=== PATIENT | male | born 1945 | race Caucasian/White ===

== ENCOUNTER 2016-10-20 15:27 | Emergency (ER) | payer MEDICARE, MEDICAID, OTHER ==
[2016-10-20 15:52] VITALS: BP 150/77
--- NOTE | 2016-10-20 16:54 | EDM.PDOC ---
ED HPI GENERAL MEDICAL PROBLEM - General Chief Complaint: General Stated Complaint: HERNIA Time Seen by Provider: 10/20/16 16:48 Source of Information: Reports: Patient History Limitations: Reports: No limitations - History of Present Illness INITIAL COMMENTS - FREE TEXT/NARRATIVE: PT ARRIVED WITH A HISTORY OF AN UMBILICAL HERNIA >hE RUBBED AGAINST SOMETHING LAST NITE AND HE ENDED UP WITH ABOUT 1 AND 1/2 GALLONS OF FLUID COMING FROM THE ABDOMAN. wHEN HE STANDS UPHE HAS FREE FLOW OF FLUID COMING OUT OF THE ABDOMAN. , Onset: today Duration: Hour(s): Location: Reports: abdomen - Related Data Allergies Allergy/AdvReac Type Severity Reaction Status Date / Time No Known Allergies Allergy Verified 05/12/16 10:12 Home Meds: Home Meds Furosemide [Furosemide] 10/20/16 [History] Metoprolol Tartrate [Metoprolol Tartrate] 10/20/16 [History] Past Medical History Musculoskeletal History: Reports: Fracture - Past Surgical History Other GI Surgeries/Procedures: liver cirrosis Social & Family History - Tobacco Use Smoking Status *Q: Light Tobacco Smoker Years of Tobacco use: 50 Packs/Tins Daily: 0.5 - Caffeine Use Caffeine Use: Reports: Coffee, Soda - Recreational Drug Use Recreational Drug Use: No ED ROS GENERAL - Review of Systems Review Of Systems: See Below Constitutional: Reports: no symptoms HEENT: Reports: No symptoms Respiratory: Reports: No Symptoms Cardiovascular: Reports: No symptoms Endocrine: Reports: no symptoms GI/Abdominal: Reports: Other ( UMBILICAL HERNIA WHICH HAS OPENED UP. ) : Reports: no symptoms, other (PT DOES HAVE A ULCER IN HIS ) Musculoskeletal: Reports: no symptoms ED EXAM, GENERAL - Physical Exam Exam: See Below Free Text/Narrative:: pT ARRIVED WITH A HISTORY OF A LOT OF FLUID LEAKING OUT OF HIS UMBILICAL HERNIA AREA. Exam Limited By: No limitations General Appearance: alert, anxious Ears: normal TMs Nose: normal inspection Throat/Mouth: Normal inspection Head: atraumatic Neck: normal inspection Respiratory/Chest: no respiratory distress Cardiovascular: regular rate, rhythm GI/Abdominal: soft, non tender, other (pT HAS A UMBILICAL HERNIA. tHIS IS LEAKING ALOT OF ACETIC FLUID. hE PROBABLY HAD ACETES AND THIS IS LEAKING OUT OF THE UMBILICAL HERNIA. ) Rectal (Males) Exam: Deferred Back Exam: normal inspection Extremities: pedal edema Neurological: alert, oriented, normal cognition, other (pT ADMITS TO DRINKING ON A DAILY BASIS. ) Course - Vital Signs Last Recorded V/S: Last Vital Signs Temp 36.8 C 10/20/16 15:48 Pulse 74 10/20/16 15:48 Resp 18 10/20/16 15:48 BP 150/77 H 10/20/16 15:48 Pulse Ox 98 10/20/16 15:48 - Orders/Labs/Meds Labs: Laboratory Tests 10/20/16 10/20/16 10/20/16 Range/Units 16:52 16:52 16:52 WBC 7.8 (4.5-11.0) K/uL RBC 4.47 (4.30-5.90) M/uL Hgb 14.4 (12.0-15.0) g/dL Hct 42.6 (40.0-54.0) % MCV 95 (80-98) fL MCH 32 H (27-31) pg MCHC 34 (32-36) % Plt Count 198 (150-400) K/uL Neut % (Auto) 69 H (36-66) % Lymph % (Auto) 16 L (24-44) % Brooke % (Auto) 11 H (2-6) % Eos % (Auto) 3 (2-4) % Baso % (Auto) 2 H (0-1) % Sodium 136 L (140-148) mmol/L Potassium 4.0 (3.6-5.2) mmol/L Chloride 100 (100-108) mmol/L Carbon Dioxide 30 (21-32) mmol/L Anion Gap 10.0 (5.0-14.0) mmol/L BUN 10 (7-18) mg/dL Creatinine 1.0 (0.8-1.3) mg/dL Est Cr Clr Drug Dosing 61.51 mL/min Estimated GFR (MDRD) > 60 (>60) Glucose 103 (74-106) mg/dL Calcium 8.7 (8.5-10.1) mg/dL Total Bilirubin 0.4 (0.2-1.0) mg/dL AST 27 (15-37) U/L ALT 23 (12-78) U/L Alkaline Phosphatase 50 (46-116) U/L Total Protein 7.6 (6.4-8.2) g/dL Albumin 3.0 L (3.4-5.0) g/dL Globulin 4.6 H (2.3-3.5) g/dL Albumin/Globulin Ratio 0.7 L (1.2-2.2) Lipase 106 (73-393) U/L Urine Color Urine Appearance Urine pH (4.5-8.0) Ur Specific Coyote (1.008-1.030) Urine Protein (NEGATIVE) mg/dL Urine Glucose (UA) (NEGATIVE) mg/dL Urine Ketones (NEGATIVE) mg/dL Urine Occult Blood (NEGATIVE) Urine Nitrite (NEGAITVE) Urine Bilirubin (NEGATIVE) Urine Urobilinogen (NORMAL) mg/dL Ur Leukocyte Esterase (NEGATIVE) Urine RBC (0-5) Urine WBC (0-5) Ur Epithelial Cells Amorphous Sediment Urine Bacteria Urine Mucus 10/20/16 Range/Units 19:22 WBC (4.5-11.0) K/uL RBC (4.30-5.90) M/uL Hgb (12.0-15.0) g/dL Hct (40.0-54.0) % MCV (80-98) fL MCH (27-31) pg MCHC (32-36) % Plt Count (150-400) K/uL Neut % (Auto) (36-66) % Lymph % (Auto) (24-44) % Brooke % (Auto) (2-6) % Eos % (Auto) (2-4) % Baso % (Auto) (0-1) % Sodium (140-148) mmol/L Potassium (3.6-5.2) mmol/L Chloride (100-108) mmol/L Carbon Dioxide (21-32) mmol/L Anion Gap (5.0-14.0) mmol/L BUN (7-18) mg/dL Creatinine (0.8-1.3) mg/dL Est Cr Clr Drug Dosing mL/min Estimated GFR (MDRD) (>60) Glucose (74-106) mg/dL Calcium (8.5-10.1) mg/dL Total Bilirubin (0.2-1.0) mg/dL AST (15-37) U/L ALT (12-78) U/L Alkaline Phosphatase (46-116) U/L Total Protein (6.4-8.2) g/dL Albumin (3.4-5.0) g/dL Globulin (2.3-3.5) g/dL Albumin/Globulin Ratio (1.2-2.2) Lipase (73-393) U/L Urine Color Yellow Urine Appearance Clear Urine pH 7.0 (4.5-8.0) Ur Specific Coyote 1.010 (1.008-1.030) Urine Protein Negative (NEGATIVE) mg/dL Urine Glucose (UA) Normal (NEGATIVE) mg/dL Urine Ketones Negative (NEGATIVE) mg/dL Urine Occult Blood Moderate (NEGATIVE) Urine Nitrite Negative (NEGAITVE) Urine Bilirubin Negative (NEGATIVE) Urine Urobilinogen Normal (NORMAL) mg/dL Ur Leukocyte Esterase Negative (NEGATIVE) Urine RBC 0-5 (0-5) Urine WBC 0-5 (0-5) Ur Epithelial Cells Rare Amorphous Sediment Not seen Urine Bacteria Not seen Urine Mucus Not seen Meds: Medications Discontinued Medications Generic Name Dose Route Start Last Admin Trade Name Freq PRN Reason Stop Dose Admin Sodium Chloride 1,000 mls @ 150 mls/hr 10/20/16 17:15 10/20/16 18:37 Normal Saline IV 150 mls/hr ASDIRECTED OLMAN Administration Sodium Chloride 85 mls @ 3.5 mls/sec 10/20/16 17:30 10/20/16 18:03 Normal Saline IV 10/20/16 22:00 3.5 mls/sec ASDIRECTED OLMAN Administration Ceftriaxone Sodium 1 gm/ 50 mls @ 100 mls/hr 10/20/16 19:41 Sodium Chloride IV 10/20/16 20:10 ONETIME ONE Iopamidol 150 ml 10/20/16 17:26 10/20/16 18:04 Isovue-300 (61%) IV 10/20/16 22:00 150 ml . DIRECTED PRN Administration RADIOLOGY EXAM Sodium Chloride 10 ml 10/20/16 17:26 10/20/16 18:03 Saline Flush FLUSH 10 ml ONETIME PRN Administration per radiology protocol - Re-Assessments/Exams Free Text/Narrative Re-Assessment/Exam: 10/20/16 19:32 a CAT SCAN OF THE ABDOMAN WAS OBTAINED WHICH SHOWED . PERITIONITIS IS SUSPECTED. Departure - Departure Time of Disposition: 15:50 Disposition: DC/Tfer to Acute Hospital 02 Condition: fair Clinical Impression: Umbilical hernia, Peritonitis Referrals: Lucian Jules MD [Primary Care Provider] - Forms: ED Department Discharge Care Plan Goals: TRANSFER TO [facility]
[2016-10-20] MEDS ORDERED: Sodium Chloride 0.9% 1,000 ML IV SCH (17:15)
[2016-10-20] MEDS ORDERED: Iopamidol 612 MG/ML 150 ML Bottle IV PRN (17:26)
[2016-10-20] MEDS ORDERED: Sodium Chloride 0.9% 10 ML Syringe FLUSH PRN (17:26)
[2016-10-20] MEDS ORDERED: cefTRIAXone 1 GM in Sodium Chloride 0.9% 50 ML IV ONE (19:41)
== END 2016-10-20 20:07 ==
LOC: JP.ED 15:27
DX: K65.9 Peritonitis, unspecified (principal); K42.9 Umbilical hernia without obstruction or gangrene; F17.210 Nicotine dependence, cigarettes, uncomplicated
CPT/HCPCS: 36415; 74177; 80053; 81001; 83690; 85025; 96360; 99285; J7030; J7040; J7050

== ENCOUNTER 2016-10-25 05:50 | Observation (INO) | payer MEDICARE, MEDICAID ==
--- NOTE | 2016-10-24 17:33 | PCM.CONS ---
H&P History of Present Illness - General Date of Service: 10/24/16 Admit Problem/Dx: PERFORATED UMBILICAL HERNIA Source of Information: Patient, Old records, Provider History Limitations: Reports: No limitations - History of Present Illness Initial Comments - Free Text/Narative: This patient is a 71-year-old gentleman who I have been asked to see by Dr. Curiel, for possible admission to the hospital for repair of the perforated umbilical hernia. Patient has had a long-standing history of daily alcohol use , and is felt to have hepatic cirrhosis and abdominal ascites. Over time he is had enlargement of his umbilical hernia related to the underlying ascites. Approximately 5 days ago noted rupture of the hernia and drainage of a significant amount of ascitic fluid. He was seen and evaluated in the emergency department 2 days ago. At that time he was recommended that he be hospitalized for antibiotics and surgical consult. He refused and presented to the surgical clinic today to see Dr. Curiel. He is obviously draining ascitic fluid from his umbilical hernia and understands that he needs to undergo surgical repair. Recent labs show a fairly normal bilirubin level, normal renal function and no significant elevation in white blood cell count. INR has not been obtained and should be obtained prior to surgical procedure tomorrow. He likely has some underlying COPD, exam today is consistent with that although he has no formal diagnosis of this condition. He refuses admission to the hospital at this time but will come back in the morning to undergo surgical repair of the hernia. - Related Data Allergies/Adverse Reactions: Allergies Allergy/AdvReac Type Severity Reaction Status Date / Time No Known Allergies Allergy Verified 05/12/16 10:12 Home Medications: Home Meds Furosemide [Furosemide] 10/20/16 [History] Metoprolol Tartrate [Metoprolol Tartrate] 10/20/16 [History] Past Medical History Musculoskeletal History: Reports: Fracture - Past Surgical History Other GI Surgeries/Procedures: liver cirrosis Social & Family History - Tobacco Use Smoking Status *Q: Light Tobacco Smoker Years of Tobacco use: 50 Packs/Tins Daily: 0.5 - Caffeine Use Caffeine Use: Reports: Coffee, Soda - Recreational Drug Use Recreational Drug Use: No H&P Review of Systems - Review of Systems: Review Of Systems: See Below General: Denies: fever, chills, malaise, weakness, night sweats, diaphoresis HEENT: Reports: no symptoms Pulmonary: Reports: No Symptoms Cardiovascular: Reports: no symptoms Gastrointestinal: Reports: No symptoms, Other (Large umbilical hernia draining ascitic fluid) Genitourinary: Reports: no symptoms Musculoskeletal: Reports: no symptoms Skin: Reports: no symptoms Psychiatric: Reports: no symptoms Neurological: Reports: No Symptoms Hematologic/Lymphatic: Reports: no symptoms Immunologic: Reports: no symptoms Exam - Exam Exam: See Below - Vital Signs Weight: 219 lb 9.286 oz - Exam General: alert, oriented, cooperative HEENT: Conjunctiva clear, Mucosa moist & pink, Nares patent, Normal nasal septum , Posterior pharynx clear, Pupils equal, Pupils reactive. No: Hearing intact Neck: supple, trachea midline, +2 carotid pulse wo bruit Lungs: Normal respiratory effort, Decreased breath sounds. No: Rales, Rhonchi, Rub, Stridor, Wheezing Cardiovascular: regular rate, regular rhythm, normal S1, normal S2. No: irregular rhythm, bradycardia, tachycardia, systolic murmur, diastolic murmur Abdomen: normal bowel sounds, soft, other (Large umbilical hernia with drainage of ascitic fluid). No: organomegaly, peritoneal signs, distention, guarding, rigidity, rebound, tenderness (Male) Exam: Other (Scrotal fistula) Back Exam: normal inspection, full range of motion, NT Extremities: 3, normal inspection, 10 Skin: warm, dry, intact Neurological: cranial nerves intact, strength equal bilateral, normal speech, normal tone, sensation intact. No: focal deficit Neuro Extensive - Mental Status: alert, oriented x3, normal mood/affect, normal cognition, memory intact Consult PN Assessment/Plan Procedures: Procedures ASSAY OF CREATININE (05/12/16) ASSAY OF LIPASE (10/20/16) COMPLETE CBC W/AUTO DIFF WBC (10/20/16) COMPREHEN METABOLIC PANEL (10/20/16) CT ABD & PELV W/CONTRAST (10/20/16) EMERGENCY DEPT VISIT (10/20/16) HYDRATION IV INFUSION INIT (10/20/16) ROUTINE VENIPUNCTURE (10/20/16) URINALYSIS AUTO W/SCOPE (10/20/16) Problem List Initiated/Reviewed/Updated: Yes Plan: ASSESSMENT AND RECOMMENDATIONS PERFORATION OF UMBILICAL HERNIA-occurred approximately 5 days ago, luckily thus far he has had no evidence of developing infection or peritonitis. He refuses admission tonight for hydration and antibiotic therapy. He understands the potential risk of infection. -He will return in the morning for surgical repair of his hernia and perforation by Dr. Castillo HEPATIC CIRRHOSIS WITH [id number] history of alcohol abuse and continues to consume alcohol on a daily basis, somewhere in the range of 8-12 ounces per day. Liver studies reviewed from recent evaluation in the emergency department and he appears to be well compensated concerning his liver disease. -Obtain INR in a.m. COPD-he has a [id number] smoking history and has smoked up until today. He was counseled concerning the importance of nicotinic cessation as well as alcohol sensation but is not interested in quitting either. There is no evidence of underlying respiratory tract infection at the present time. -Supplemental oxygen as needed after surgery -Nebulizer therapy as needed -Encourage vigorous pulmonary toilet after surgery ALCOHOL ABUSE AND DEPENDENCE -Monitor closely for any evidence of alcohol withdrawal during the postoperative period Requesting Provider: YAZMIN Date Consult Requested: 10/24/16 Reason for Consult: Perforation of umbilical hernia Patient History Reviewed: Yes Notified Requestor: Yes
[2016-10-25] MEDS ORDERED: Dextrose 5%-Lactated Ringers 1,000 ML IV SCH (06:00)
[2016-10-25] MEDS ORDERED: Metoprolol Tartrate 50 MG Tab PO ONE (06:15)
[2016-10-25] MEDS ORDERED: Albumin 25% 12.5 GM/50 ML BAG IV STA (06:18)
[2016-10-25] MEDS ORDERED: Albumin 25% 12.5 GM/50 ML BAG IV ONE ×3 (06:50→07:30)
[2016-10-25] MEDS ORDERED: Meropenem 500 MG SDV ONE (07:25)
[2016-10-25] MEDS: methylPREDNISolone Sodium Succinate 125 MG/2 ML SDV IVPUSH ONE ×2 (07:28→09:48)
[2016-10-25] MEDS ORDERED: Albuterol/Ipratropium 3.0-0.5 MG/3 ML Neb Soln ONE (07:29)
[2016-10-25] MEDS: Furosemide 40 MG/4 ML VIAL ONE (07:30)
[2016-10-25] MEDS ORDERED: Albuterol/Ipratropium 3.0-0.5 MG/3 ML Neb Soln NEB STA (07:37)
[2016-10-25] MEDS: methylPREDNISolone Sodium Succinate 125 MG/2 ML SDV ONE ×2 (07:38)
[2016-10-25] MEDS: Furosemide 40 MG/4 ML VIAL IVPUSH STA ×2 (07:38→09:48)
[2016-10-25] MEDS ORDERED: diphenhydrAMINE 50 MG/ML SDV ONE (07:38)
[2016-10-25] MEDS ORDERED: diphenhydrAMINE 50 MG/ML SDV IVPUSH ONE (07:43)
[2016-10-25] MEDS ORDERED: Meropenem 500 MG in Sodium Chloride 0.9% 50 ML IV ONE (07:45)
[2016-10-25] MEDS ORDERED: Docusate Sodium 100 MG Cap PO PRN (09:11)
[2016-10-25] MEDS ORDERED: Polyethylene Glycol 3350 Powder 17 GM Packet PO PRN (09:11)
[2016-10-25] MEDS ORDERED: LORazepam 2 MG/ML MDV IV SCH (09:11)
[2016-10-25] MEDS ORDERED: Magnesium Hydroxide 400 MG/5 ML Susp 30 ML Cup PO PRN (09:11)
[2016-10-25] MEDS ORDERED: oxyCODONE 5 MG Tab PO PRN (09:11)
[2016-10-25] MEDS ORDERED: Ondansetron 4 MG/2 ML SDV IV PRN (09:11)
[2016-10-25] MEDS ORDERED: Sodium Chloride 0.9% 10 ML Syringe FLUSH PRN (09:11)
[2016-10-25] MEDS ORDERED: Nicotine 10 MG/Cartridge Inhaler 168 Cartridges/Box INH PRN (09:11)
[2016-10-25] MEDS ORDERED: Albuterol 0.083% 2.5 MG/3 ML Neb Soln NEB PRN (09:11)
[2016-10-25] MEDS: Albuterol/Ipratropium 3.0-0.5 MG/3 ML Neb Soln NEB SCH ×3 (10:53→20:21)
[2016-10-25] MEDS: Meropenem 1 GM in Sodium Chloride 0.9% 100 ML IV SCH ×2 (11:10→19:44)
[2016-10-25] MEDS: Folic Acid 1 MG Tab PO SCH (11:27)
[2016-10-25] MEDS: Thiamine 100 MG Tab PO SCH (11:28)
[2016-10-25] MEDS: Nicotine 21 MG/24 Hr Patch TRDERM SCH (11:29)
[2016-10-25] MEDS: methylPREDNISolone Sodium Succinate 40 MG/1 ML SDV IVPUSH SCH ×3 (11:31→23:47)
[2016-10-25] MEDS: chlordiazePOXIDE 25 MG Cap PO SCH ×2 (11:37→19:42)
[2016-10-25] MEDS: Lactated Ringers 1,000 ML IV SCH ×2 (13:01→22:24)
--- NOTE | 2016-10-25 13:13 | PCM.HP ---
H&P History of Present Illness - General Date of Service: 10/25/16 Source of Information: Patient, Old records, Provider, RN notes reviewed History Limitations: Reports: No limitations - History of Present Illness Initial Comments - Free Text/Narative: This patient is a 71-year-old gentleman who is well-known to me from evaluation on an outpatient basis yesterday. He was admitted to outpatient unit today to undergo surgical repair of his perforated umbilical hernia. Prior to surgery he was given IV albumin, and developed apparent allergic reaction with respiratory compromise and a diffuse rash. He has responded to therapy with nebulizer, IV Benadryl, and IV Solu-Medrol. He has a previous history of hepatic cirrhosis with underlying ascites. Over time he has had enlargement of his umbilical hernia related to the underlying ascites. Approximately 5 days ago noted rupture of the hernia and drainage of a significant amount of ascitic fluid. He was seen and evaluated in the emergency department 2 days ago. At that time he was recommended that he be hospitalized for antibiotics and surgical consult. He refused and presented to the surgical clinic yesterday to see Dr. Curiel. He is obviously draining ascitic fluid from his umbilical hernia and understands that he needs to undergo surgical repair. Recent labs show a fairly normal bilirubin level, normal renal function and no significant elevation in white blood cell count. His INR level was obtained this morning and is only slightly elevated. - Related Data Allergies/Adverse Reactions: Allergies Allergy/AdvReac Type Severity Reaction Status Date / Time albumin human Allergy Anaphylactic Verified 10/25/16 10:53 [From Flexbumin 25 %] Shock Home Medications: Home Meds Furosemide [Furosemide] 20 mg PO DAILY 10/20/16 [History] Metoprolol Tartrate [Metoprolol Tartrate] 100 mg PO BID 10/20/16 [History] Past Medical History HEENT History: Reports: Other (see below) Other HEENT History: reading glasses Cardiovascular History: Reports: Hypertension Respiratory History: Reports: None Musculoskeletal History: Reports: Fracture - Past Surgical History HEENT Surgical History: Reports: None Cardiovascular Surgical History: Reports: None Respiratory Surgical History: Reports: None Other GI Surgeries/Procedures: liver cirrosis Social & Family History - Tobacco Use Smoking Status *Q: Light Tobacco Smoker Years of Tobacco use: 60 Packs/Tins Daily: 0.2 Used Tobacco, but Quit: No Second Hand Smoke Exposure: No - Caffeine Use Caffeine Use: Reports: Coffee Other Caffeine Use: 1-2 cups of coffee with cream - Alcohol Use Days Per Week of Alcohol Use: 7 Number of Drinks Per Day: 4 Total Drinks Per Week: 28 Date of Last Drink: 10/25/16 Time of Last Drink: 21:00 - Recreational Drug Use Recreational Drug Use: No H&P Review of Systems - Review of Systems: Review Of Systems: See Below General: Reports: weakness. Denies: fever, chills HEENT: Reports: no symptoms Pulmonary: Reports: Shortness of Breath, Wheezing. Denies: Pleuritic Chest Pain , Cough, Sputum, Hemoptysis Cardiovascular: Reports: no symptoms Gastrointestinal: Reports: Other (Umbilical hernia with perforation and drainage of ascitic fluid). Denies: Abdominal pain, Bloody stool, Constipation , Diarrhea, Decreased appetite, Difficulty swallowing, Distension Genitourinary: Reports: no symptoms Musculoskeletal: Reports: no symptoms Skin: Reports: no symptoms Psychiatric: Reports: no symptoms Neurological: Reports: No Symptoms Hematologic/Lymphatic: Reports: no symptoms Immunologic: Reports: no symptoms Exam - Exam Exam: See Below - Vital Signs Vital Signs: Last Vital Signs Temp 95.8 F 10/25/16 10:08 Pulse 68 10/25/16 10:08 Resp 15 10/25/16 10:08 BP 103/72 10/25/16 10:08 Pulse Ox 100 10/25/16 10:08 Weight: 219 lb 9.286 oz - Exam Quality Assessment: supplemental oxygen, DVT prophylaxis General: alert, oriented, cooperative, mild distress HEENT: Conjunctiva clear, EOMI, Mucosa moist & pink, Nares patent, Normal nasal septum, Posterior pharynx clear, Pupils equal, Pupils reactive. No: Hearing intact Neck: supple, trachea midline, +2 carotid pulse wo bruit Lungs: Decreased breath sounds, Wheezing. No: Crackles, Rales, Rhonchi, Rub, Stridor Cardiovascular: regular rate, regular rhythm, normal S1, normal S2. No: systolic murmur, diastolic murmur Abdomen: normal bowel sounds, soft, other (Umbilical hernia with perforation) Back Exam: normal inspection, full range of motion, NT Extremities: 3, normal inspection, 10 Skin: warm, dry, intact, rash Neurological: cranial nerves intact, strength equal bilateral, normal speech, normal tone, sensation intact. No: focal deficit Neuro Extensive - Mental Status: alert, oriented x3, normal mood/affect, normal cognition, memory intact - Patient Data Lab Results last 24 hrs: Laboratory Results - last 24 hr 10/25/16 10/25/16 10/25/16 Range/Units 06:00 06:00 06:00 WBC 6.3 (4.5-11.0) K/uL RBC 4.38 (4.30-5.90) M/uL Hgb 14.2 (12.0-15.0) g/dL Hct 41.6 (40.0-54.0) % MCV 95 (80-98) fL MCH 32 H (27-31) pg MCHC 34 (32-36) % Plt Count 204 (150-400) K/uL PT 10.6 (9.5-12.0) sec INR 1.00 (0.80-1.20) APTT 29.6 (27.0-36.0) sec Sodium 138 L (140-148) mmol/L Potassium 3.9 (3.6-5.2) mmol/L Chloride 103 (100-108) mmol/L Carbon Dioxide 27 (21-32) mmol/L Anion Gap 11.9 (5.0-14.0) mmol/L BUN 17 D (7-18) mg/dL Creatinine 1.2 (0.8-1.3) mg/dL Est Cr Clr Drug Dosing 51.26 mL/min Estimated GFR (MDRD) 59 L (>60) Glucose 93 (74-106) mg/dL Calcium 8.3 L (8.5-10.1) mg/dL Phosphorus 3.4 (2.5-4.9) mg/dL Magnesium 1.4 L (1.8-2.4) mg/dL Total Bilirubin 0.3 (0.2-1.0) mg/dL AST 31 (15-37) U/L ALT 27 (12-78) U/L Alkaline Phosphatase 69 (46-116) U/L Total Protein 7.3 (6.4-8.2) g/dL Albumin 2.9 L (3.4-5.0) g/dL Globulin 4.4 H (2.3-3.5) g/dL Albumin/Globulin Ratio 0.7 L (1.2-2.2) Result Diagrams: 10/25/16 06:00 10/25/16 06:00 *Q Meaningful Use (ADM) - VTE *Q VTE Criteria *Q: VTE Pharmacological Contraindications *Q: Patient Scheduled Surgery - VTE Risk Assess *Q Each Risk Factor Represents 1 Point: Obesity (BMI greater than 30), Abnormal Pulmonary Function (COPD) Total Score 1 Point Risk Factors: 2 Each Risk Factor Represents 2 Points: Age 60 - 74 Years Total Score 2 Point Risk Factors: 2 Each Risk Factor Represents 3 Points: None Total Score 3 Point Risk Factors: 0 Each Risk Factor Represents 5 Points: None Total Score 5 Point Risk Factors: 0 Venous Thromboembolism Risk Factor Score *Q: 4 - Stroke *Q Stroke Criteria *Q: - AMI *Q AMI Criteria *Q: Problem List Initiated/Reviewed/Updated: Yes Orders Last 24hrs: Active Orders 24 hr Category Date Time Status Patient Status [ADT] Routine ADT 10/25/16 09:11 Active CIWAA Assessment [RC] Q4H Care 10/25/16 09:11 Active Cardiac Monitoring [RC] .As Directed Care 10/25/16 08:31 Active EKG Documentation Completion [RC] ASDIRECTED Care 10/25/16 08:12 Inactive Intake and Output [RC] QSHIFT Care 10/25/16 09:11 Active Notify Provider Vital Signs [RC] ASDIRECTED Care 10/25/16 09:11 Active Notify Provider [RC] PRN Care 10/25/16 09:11 Active Oxygen Therapy [RC] PRN Care 10/25/16 09:11 Active Peripheral IV Care [RC] . DIRECTED Care 10/25/16 09:11 Active RT Aerosol Therapy [RC] ASDIRECTED Care 10/25/16 07:38 Inactive RT Aerosol Therapy [RC] ASDIRECTED Care 10/25/16 09:11 Active RT Incentive Spirometry [RC] ASDIRECTED Care 10/25/16 06:00 Inactive RT Incentive Spirometry [RC] ASDIRECTED Care 10/27/16 06:00 Inactive Up With Assistance [RC] ASDIRECTED Care 10/25/16 09:11 Active VTE/DVT Education [RC] Per Unit Routine Care 10/25/16 09:11 Active Vital Signs [RC] Q4H Care 10/25/16 09:11 Active Nothing per Oral After Midnight Diet [DIET] Diet 10/26/16 Breakfast Active Regular Diet [DIET] Diet 10/25/16 Lunch Active CBC WITH AUTO DIFF [HEME] AM Lab 10/26/16 05:11 Ordered COMPREHENSIVE METABOLIC PN,CMP [CHEM] AM Lab 10/26/16 05:11 Ordered INR,PT,PROTHROMBIN TIME [COAG] AM Lab 10/26/16 05:11 Ordered MAGNESIUM [CHEM] AM Lab 10/26/16 05:11 Ordered Albuterol [Proventil Neb Soln] Med 10/25/16 09:11 Active 2.5 mg NEB Q4H PRN Albuterol/Ipratropium [DuoNeb 3.0-0.5 MG/3 ML] Med 10/25/16 11:00 Active 3 ml NEB QIDRT Docusate Sodium [Colace] Med 10/25/16 09:11 Active 100 mg PO BID PRN Folic Acid Med 10/25/16 11:00 Active 1 mg PO DAILY LORazepam [Ativan] Med 10/25/16 09:11 Active See Protocol IV ASDIRECTED LORazepam [Ativan] Med 10/25/16 09:11 Active See Protocol PO ASDIRECTED Lactated Ringers [Ringers, Lactated] 1,000 ml Med 10/25/16 09:11 Active IV ASDIRECTED Magnesium Hydroxide [Milk of Magnesia] Med 10/25/16 09:11 Active 30 ml PO Q12H PRN Meropenem [Merrem] 1 gm Med 10/25/16 11:00 Active Sodium Chloride 0.9% [Normal Saline] 100 ml IV Q8H Metoprolol Tartrate [Lopressor] Med 10/25/16 21:00 Active 100 mg PO BID Nicotine [Habitrol] Med 10/25/16 11:00 Active 21 mg TRDERM DAILY Nicotine [Nicotrol] Med 10/25/16 09:11 Active 10 mg INH Q1H PRN Non-Formulary Medication [NF Drug] Med 10/25/16 16:00 Active 0 each PO QID Ondansetron [Zofran] Med 10/25/16 09:11 Active 4 mg IV Q4H PRN Polyethylene Glycol 3350 [MiraLAX] Med 10/25/16 09:11 Active 17 gm PO DAILY PRN Sodium Chloride 0.9% [Saline Flush] Med 10/25/16 09:11 Active 10 ml FLUSH ASDIRECTED PRN Thiamine [Vitamin B-1] Med 10/25/16 11:00 Active 100 mg PO DAILY chlordiazePOXIDE [Librium] Med 10/25/16 11:00 Active 25 mg PO Q8H methylPREDNISolone Sod Succ [Solu-MEDROL] Med 10/25/16 12:00 Active 40 mg IVPUSH Q6H oxyCODONE Med 10/25/16 09:11 Active 5 mg PO Q4H PRN Peripheral IV Insertion Adult [OM.PC] Routine Oth 10/25/16 09:11 Ordered Sequential Compression Device [OM.PC] Per Unit Routine Oth 10/25/16 09:11 Ordered Resuscitation Status Routine Resus Stat 10/25/16 08:35 Ordered EKG 12 Lead [EK] Stat Ther 10/25/16 08:12 Stop Req Medication Orders Albuterol (Proventil Neb Soln) 2.5 mg NEB Q4H PRN PRN Reason: Shortness Of Breath/wheezing Albuterol/Ipratropium (Duoneb 3.0-0.5 Mg/3 Ml) 3 ml NEB QIDRT [facility] Last Admin: 10/25/16 10:53 Dose: 3 ml Chlordiazepoxide HCl (Librium) 25 mg PO Q8H [facility] Last Admin: 10/25/16 11:37 Dose: 25 mg Docusate Sodium (Colace) 100 mg PO BID PRN PRN Reason: Constipation Folic Acid (Folic Acid) 1 mg PO DAILY [facility] Last Admin: 10/25/16 11:27 Dose: 1 mg Lactated Ringer's (Ringers, Lactated) 1,000 mls @ 125 mls/hr IV ASDIRECTED [facility] Last Admin: 10/25/16 13:01 Dose: 125 mls/hr Meropenem 1 gm/ Sodium (Chloride) 100 mls @ 200 mls/hr IV Q8H [facility] Last Admin: 10/25/16 11:10 Dose: 200 mls/hr Lorazepam (Ativan) 0 mg IV ASDIRECTED [facility] PRN Reason: Protocol Lorazepam (Ativan) 0 mg PO ASDIRECTED [facility] PRN Reason: Protocol Magnesium Hydroxide (Milk Of Magnesia) 30 ml PO Q12H PRN PRN Reason: Constipation Methylprednisolone Sodium Succinate (Solu-Medrol) 40 mg IVPUSH Q6H [facility] Last Admin: 10/25/16 11:31 Dose: 40 mg Metoprolol Tartrate (Lopressor) 100 mg PO BID [facility] Nicotine (Habitrol) 21 mg TRDERM DAILY [facility] Last Admin: 10/25/16 11:29 Dose: 21 mg Nicotine (Nicotrol) 10 mg INH Q1H PRN PRN Reason: Other Melo Vodka 60ml 0 each PO QID [facility] Ondansetron HCl (Zofran) 4 mg IV Q4H PRN PRN Reason: Nausea/Vomiting Oxycodone HCl (Oxycodone) 5 mg PO Q4H PRN PRN Reason: Pain (moderate 4-6) Polyethylene Glycol (Miralax) 17 gm PO DAILY PRN PRN Reason: Constipation Sodium Chloride (Saline Flush) 10 ml FLUSH ASDIRECTED PRN PRN Reason: Keep Vein Open Thiamine HCl (Vitamin B-1) 100 mg PO DAILY [facility] Last Admin: 10/25/16 11:28 Dose: 100 mg Assessment/Plan Comment:: ASSESSMENT AND RECOMMENDATIONS ALLERGIC REACTION TO IV ALBUMIN-he developed respiratory compromise with bilateral expiratory wheezes and diffuse rash. Significantly improved following use of IV Benadryl and IV Solu-Medrol. -Solu-Medrol 40 mg IV every 6 hours -IV Benadryl 25 mg every 6 hours as needed PERFORATION OF UMBILICAL HERNIA-occurred approximately 6 days ago, luckily thus far he has had no evidence of developing infection or peritonitis. Plan had been for surgical repair this morning, this is been placed on hold until tomorrow because of his allergic reaction to the abdomen -surgical repair of his hernia and perforation by Dr. Castillo -Meropenem 1 g IV every 8 hours HEPATIC CIRRHOSIS WITH UPWKDAL-[id number] history of alcohol abuse and continues to consume alcohol on a daily basis, somewhere in the range of 8-12 ounces per day. Liver studies reviewed from recent evaluation in the emergency department and he appears to be well compensated concerning his liver disease. -Alcohol withdrawal protocol -Regular dose of Librium to prevent alcohol withdrawal -2 ounces of alcohol every 6 hours scheduled COPD-he has a [id number] smoking history and has smoked up until today. He was counseled concerning the importance of nicotinic cessation as well as alcohol sensation but is not interested in quitting either. There is no evidence of underlying respiratory tract infection at the present time. Did have compromise of respiratory status associated with his allergic reaction but this seems to have quieted he feels as though his back to baseline -Supplemental oxygen as needed -Nebulizer therapy as needed -Encourage vigorous pulmonary toilet after surgery -Solu-Medrol as above ALCOHOL ABUSE AND DEPENDENCE -Monitor closely for any evidence of alcohol withdrawal during the postoperative period MAINTENANCE ISSUES -DVT prophylaxis; SCUDs -GI prophylaxis; Protonix 40 mg by mouth daily -Jo catheter; not indicated -Nutrition; 2 g sodium diet, n.p.o. after midnight -Nicotinic dependence; nicotine patch 14 mg daily, nicotine inhaler when necessary CODE STATUS-FULL CODE ADMISSION STATUS-this patient will be admitted to observation status, expect no more than a one night hospital stay for evaluation and management of problems as outlined above. DISPOSITION-anticipate discharge to home after the hospital stay. PRIMARY CARE PROVIDER-Dr. Jules
[2016-10-25] MEDS: [UNRECOGNIZED DRUG - OTHER] PO SCH ×2 (16:16→22:24)
[2016-10-25] MEDS: Metoprolol Tartrate 50 MG Tab PO SCH (20:22)
[2016-10-25] MEDS: LORazepam 1 MG Tab PO SCH (23:06)
[2016-10-26] MEDS: Meropenem 1 GM in Sodium Chloride 0.9% 100 ML IV SCH ×3 (03:18→18:16)
[2016-10-26] MEDS: chlordiazePOXIDE 25 MG Cap PO SCH ×3 (03:20→18:35)
[2016-10-26] MEDS: methylPREDNISolone Sodium Succinate 40 MG/1 ML SDV IVPUSH SCH ×3 (05:40→18:17)
[2016-10-26] MEDS: [UNRECOGNIZED DRUG - OTHER] PO SCH ×2 (05:40→10:36)
[2016-10-26] MEDS: Lactated Ringers 1,000 ML IV SCH ×2 (06:08→18:16)
[2016-10-26] MEDS ORDERED: Meropenem 500 MG SDV ONE (06:59)
[2016-10-26] MEDS: Albuterol/Ipratropium 3.0-0.5 MG/3 ML Neb Soln NEB SCH ×4 (07:24→20:30)
[2016-10-26] MEDS ORDERED: Ondansetron 4 MG/2 ML SDV ONE (07:26)
[2016-10-26] MEDS ORDERED: Midazolam 1 MG/ML 2 ML SDV ONE (07:26)
[2016-10-26] MEDS ORDERED: Propofol 200 MG/20 ML SDV ONE (07:26)
[2016-10-26] MEDS ORDERED: Neostigmine Methylsulfate 1 MG/ML 5 ML Syringe ONE (07:26)
[2016-10-26] MEDS ORDERED: Rocuronium 50 MG/5 ML Vial ONE (07:26)
[2016-10-26] MEDS ORDERED: Dexamethasone 4 MG/ML SDV ONE (07:26)
[2016-10-26] MEDS ORDERED: fentaNYL 250 MCG/5 ML SDV ONE (07:26)
[2016-10-26] MEDS ORDERED: Bupivacaine 0.5%/EPINEPHrine 1:200,000 50 ML MDV ONE (08:52)
[2016-10-26] MEDS: Nicotine 21 MG/24 Hr Patch TRDERM SCH (10:28)
[2016-10-26] MEDS: Metoprolol Tartrate 50 MG Tab PO SCH ×2 (10:28→20:29)
[2016-10-26] MEDS: Folic Acid 1 MG Tab PO SCH (10:28)
[2016-10-26] MEDS: Thiamine 100 MG Tab PO SCH (10:29)
[2016-10-26] MEDS ORDERED: oxyCODONE 5 MG Tab PO PRN (10:43)
[2016-10-26] MEDS: Multivitamins with Iron/Calcium/Folic Acid/Minerals Tab PO SCH (10:53)
[2016-10-26] MEDS ORDERED: Linezolid 200 MG/100 ML Bag IRR ONE (13:32)
--- NOTE | 2016-10-26 14:21 | PCM.PN ---
- General Info Date of Service: 10/26/16 Functional Status: Reports: tolerating diet, urinating - Review of Systems General: Denies: Fever, Weakness, Chills Pulmonary: Reports: no symptoms Cardiovascular: Reports: No Symptoms Gastrointestinal: Reports: Abdominal pain. Denies: Constipation, Decreased appetite, Diarrhea, Difficulty swallowing, Nausea, Vomiting Systems Review Comment:: This patient has remained stable since admission yesterday morning, thus far has shown no evidence of alcohol withdrawal. He did undergo surgical repair of his perforated umbilical hernia earlier today by Dr. Castillo. He has done well during the initial postoperative period and has been hemodynamically stable as well as afebrile. Anticipate discharge to home tomorrow. - Patient Data Vitals - most recent: Last Vital Signs Temp 97.9 F 10/26/16 12:00 Pulse 95 10/26/16 12:00 Resp 16 10/26/16 12:00 BP 93/63 10/26/16 12:00 Pulse Ox 92 L 10/26/16 14:01 Weight - most recent: 219 lb 9.286 oz I&O - last 24 hours: Intake & Output 10/25/16 10/26/16 10/26/16 22:59 06:59 14:59 Intake Total 2540 1496 Balance 2540 1496 Lab Results last 24 hrs: Laboratory Results - last 24 hr 10/26/16 10/26/16 10/26/16 Range/Units 04:39 04:39 04:39 WBC 7.5 (4.5-11.0) K/uL RBC 4.07 L (4.30-5.90) M/uL Hgb 12.9 (12.0-15.0) g/dL Hct 38.6 L (40.0-54.0) % MCV 95 (80-98) fL MCH 32 H (27-31) pg MCHC 33 (32-36) % Plt Count 186 (150-400) K/uL Neut % (Auto) 88 H (36-66) % Lymph % (Auto) 10 L (24-44) % [place] % (Auto) 2 (2-6) % Eos % (Auto) 0 L (2-4) % Baso % (Auto) 0 (0-1) % PT 11.4 (9.5-12.0) sec INR 1.07 (0.80-1.20) Sodium 142 (140-148) mmol/L Potassium 4.0 (3.6-5.2) mmol/L Chloride 108 (100-108) mmol/L Carbon Dioxide 24 (21-32) mmol/L Anion Gap 10.3 (5.0-14.0) mmol/L BUN 23 H (7-18) mg/dL Creatinine 1.1 (0.8-1.3) mg/dL Est Cr Clr Drug Dosing 55.92 mL/min Estimated GFR (MDRD) > 60 (>60) Glucose 195 H (74-106) mg/dL Calcium 8.2 L (8.5-10.1) mg/dL Magnesium 1.6 L (1.8-2.4) mg/dL Total Bilirubin 0.4 (0.2-1.0) mg/dL AST 21 (15-37) U/L ALT 23 (12-78) U/L Alkaline Phosphatase 58 (46-116) U/L Total Protein 6.4 (6.4-8.2) g/dL Albumin 2.6 L (3.4-5.0) g/dL Globulin 3.8 H (2.3-3.5) g/dL Albumin/Globulin Ratio 0.7 L (1.2-2.2) Med Orders - Current: Current Medications Albuterol (Proventil Neb Soln) 2.5 mg NEB Q4H PRN PRN Reason: Shortness Of Breath/wheezing Albuterol/Ipratropium (Duoneb 3.0-0.5 Mg/3 Ml) 3 ml NEB QIDRT [facility] Last Admin: 10/26/16 10:50 Dose: 3 ml Chlordiazepoxide HCl (Librium) 25 mg PO Q8H [facility] Last Admin: 10/26/16 10:44 Dose: 25 mg Docusate Sodium (Colace) 100 mg PO BID PRN PRN Reason: Constipation Folic Acid (Folic Acid) 1 mg PO DAILY [facility] Last Admin: 10/26/16 10:28 Dose: 1 mg Lactated Ringer's (Ringers, Lactated) 1,000 mls @ 125 mls/hr IV ASDIRECTED [facility] Last Admin: 10/26/16 06:08 Dose: 125 mls/hr Meropenem 1 gm/ Sodium (Chloride) 100 mls @ 200 mls/hr IV Q8H [facility] Last Admin: 10/26/16 10:52 Dose: 200 mls/hr Lorazepam (Ativan) 0 mg IV ASDIRECTED [facility] PRN Reason: Protocol Lorazepam (Ativan) 0 mg PO ASDIRECTED [facility] PRN Reason: Protocol Last Admin: 10/25/16 23:06 Dose: 1 mg Magnesium Hydroxide (Milk Of Magnesia) 30 ml PO Q12H PRN PRN Reason: Constipation Methylprednisolone Sodium Succinate (Solu-Medrol) 40 mg IVPUSH Q6H [facility] Last Admin: 10/26/16 11:03 Dose: 40 mg Metoprolol Tartrate (Lopressor) 100 mg PO BID [facility] Last Admin: 10/26/16 10:28 Dose: 100 mg Multivitamins/Minerals (Thera M Plus) 2 tab PO DAILY [facility] Last Admin: 10/26/16 10:53 Dose: 2 tab Nicotine (Habitrol) 21 mg TRDERM DAILY [facility] Last Admin: 10/26/16 10:28 Dose: 21 mg Nicotine (Nicotrol) 10 mg INH Q1H PRN PRN Reason: Other Melo Vodka 60ml 0 each PO QID PRN PRN Reason: PREVENT WITHDRAWL Ondansetron HCl (Zofran) 4 mg IV Q4H PRN PRN Reason: Nausea/Vomiting Oxycodone HCl (Oxycodone) 5 - 10 mg PO Q4H PRN PRN Reason: Pain (moderate 4-6) Polyethylene Glycol (Miralax) 17 gm PO DAILY PRN PRN Reason: Constipation Sodium Chloride (Saline Flush) 10 ml FLUSH ASDIRECTED PRN PRN Reason: Keep Vein Open Thiamine HCl (Vitamin B-1) 100 mg PO DAILY [facility] Last Admin: 10/26/16 10:29 Dose: 100 mg Discontinued Medications Albuterol/Ipratropium (Duoneb 3.0-0.5 Mg/3 Ml) Confirm Administered Dose 3 ml .ROUTE .STK-MED ONE Stop: 10/25/16 07:30 Last Admin: 10/25/16 07:32 Dose: 3 ml Albuterol/Ipratropium (Duoneb 3.0-0.5 Mg/3 Ml) 3 ml NEB NOW STA Stop: 10/25/16 07:38 Last Admin: 10/25/16 09:49 Dose: Not Given Bupivacaine HCl/Epinephrine Bitart (Marcaine 0.5%/Epinephrine 1:200,000) Confirm Administered Dose 50 ml .ROUTE .[facility]-MED ONE Stop: 10/26/16 08:53 Last Admin: 10/26/16 13:31 Dose: 14 ml Dexamethasone (Dexamethasone) Confirm Administered Dose 4 mg .ROUTE .STK-MED ONE Stop: 10/26/16 07:27 Diphenhydramine HCl (Benadryl) Confirm Administered Dose 50 mg .ROUTE .[facility]-MED ONE Stop: 10/25/16 07:39 Last Admin: 10/25/16 07:40 Dose: 50 mg Diphenhydramine HCl (Benadryl) 50 mg IVPUSH ONETIME ONE Stop: 10/25/16 07:44 Last Admin: 10/25/16 09:48 Dose: Not Given Fentanyl (Sublimaze) Confirm Administered Dose 250 mcg .ROUTE .[facility]-MED ONE Stop: 10/26/16 07:27 Furosemide (Lasix) Confirm Administered Dose 40 mg .ROUTE .[facility]-MED ONE Stop: 10/25/16 07:30 Last Admin: 10/25/16 07:30 Dose: 40 mg Furosemide (Lasix) 40 mg IVPUSH ONETIME STA Stop: 10/25/16 07:38 Last Admin: 10/25/16 09:48 Dose: Not Given Glycopyrrolate () Confirm Administered Dose 1 mg .ROUTE .STK-MED ONE Stop: 10/26/16 07:27 Dextrose/Lactated Ringer's (Dextrose 5%-Lactated Ringers) 1,000 mls @ 200 mls/ hr IV ASDIRECTED [facility] Last Admin: 10/25/16 06:30 Dose: 200 mls/hr Meropenem 500 mg/ Sodium (Chloride) 50 mls @ 100 mls/hr IV ONETIME ONE Stop: 10/25/16 08:14 Last Admin: 10/25/16 09:48 Dose: Not Given Albumin Human (Flexbumin 25%) 12.5 gm in 50 mls @ 100 mls/hr IV NOW STA Stop: 10/25/16 06:47 Last Admin: 10/25/16 07:18 Dose: 100 mls/hr Albumin Human (Flexbumin 25%) 12.5 gm in 50 mls @ 100 mls/hr IV ONETIME ONE Stop: 10/25/16 07:19 Last Admin: 10/25/16 09:45 Dose: Not Given Albumin Human (Flexbumin 25%) 12.5 gm in 50 mls @ 100 mls/hr IV ONETIME ONE Stop: 10/25/16 07:39 Last Admin: 10/25/16 09:45 Dose: Not Given Albumin Human (Flexbumin 25%) 12.5 gm in 50 mls @ 100 mls/hr IV ONETIME ONE Stop: 10/25/16 07:59 Last Admin: 10/25/16 09:47 Dose: Not Given Linezolid (Zyvox) Confirm Administered Dose 0 mls @ as directed .ROUTE .STK-MED ONE Stop: 10/25/16 07:27 Linezolid (Zyvox) Confirm Administered Dose 100 mls @ as directed .ROUTE .STK- MED ONE Stop: 10/26/16 07:01 Linezolid (Zyvox) 200 mg IRR .STK-MED ONE Stop: 10/26/16 13:33 Last Admin: 10/26/16 13:32 Dose: 200 mg Meropenem (Merrem) Confirm Administered Dose 500 mg .ROUTE .STK-MED ONE Stop: 10/25/16 07:26 Meropenem (Merrem) Confirm Administered Dose 500 mg .ROUTE .STK-MED ONE Stop: 10/26/16 07:00 Last Admin: 10/26/16 13:31 Dose: 500 mg Methylprednisolone Sodium Succinate (Solu-Medrol) Confirm Administered Dose 125 mg .ROUTE .STK-MED ONE Stop: 10/25/16 07:39 Last Admin: 10/25/16 07:38 Dose: 125 mg Methylprednisolone Sodium Succinate (Solu-Medrol) 60 mg IVPUSH ONETIME ONE Stop: 10/25/16 07:45 Last Admin: 10/25/16 09:48 Dose: Not Given Metoprolol Tartrate (Lopressor) 100 mg PO ONETIME ONE Stop: 10/25/16 06:16 Last Admin: 10/25/16 06:27 Dose: 100 mg Midazolam HCl (Versed 1 Mg/Ml) Confirm Administered Dose 2 mg .ROUTE .STK-MED ONE Stop: 10/26/16 07:27 Neostigmine Methylsulfate (Neostigmine) Confirm Administered Dose 5 mg .ROUTE .STK-MED ONE Stop: 10/26/16 07:27 Melo Vodka 60ml 0 each PO QID [facility] Last Admin: 10/26/16 10:36 Dose: Not Given Ondansetron HCl (Zofran) Confirm Administered Dose 4 mg .ROUTE .STK-MED ONE Stop: 10/26/16 07:27 Oxycodone HCl (Oxycodone) 5 mg PO Q4H PRN PRN Reason: Pain (moderate 4-6) Propofol (Diprivan 20 Ml) Confirm Administered Dose 200 mg .ROUTE .STK-MED ONE Stop: 10/26/16 07:27 Rocuronium Bruni (Zemuron) Confirm Administered Dose 50 mg .ROUTE .STK-MED ONE Stop: 10/26/16 07:27 - Exam Quality Assessment: DVT prophylaxis General: alert, oriented, cooperative Lungs: Clear to auscultation, Normal respiratory effort Cardiovascular: Regular Rate, Regular Rhythm, No Murmurs Abdomen: bowel sounds present, soft, no tenderness, no distension Extremities: no edema Skin: warm, dry, intact - Problem List Review Problem List Initiated/Reviewed/Updated: Yes - My Orders Last 24 Hours: My Active Orders 10/25/16 21:00 Metoprolol Tartrate [Lopressor] 100 mg PO BID 10/26/16 10:43 oxyCODONE 5 - 10 mg PO Q4H PRN 10/26/16 10:44 Non-Formulary Medication [NF Drug] 0 each PO QID PRN - Plan Plan:: ASSESSMENT AND RECOMMENDATIONS ALLERGIC REACTION TO IV ALBUMIN-resolved PERFORATION OF UMBILICAL HERNIA-status post surgical repair by Dr. Castillo earlier today -Meropenem 1 g IV every 8 hours HEPATIC CIRRHOSIS WITH [id number] history of alcohol abuse and continues to consume alcohol on a daily basis, somewhere in the range of 8-12 ounces per day. Liver studies reviewed from recent evaluation in the emergency department and he appears to be well compensated concerning his liver disease. -Alcohol withdrawal protocol -Regular dose of Librium to prevent alcohol withdrawal -2 ounces of alcohol every 6 hours scheduled COPD-he has a [id number] smoking history and has smoked up until today. He was counseled concerning the importance of nicotinic cessation as well as alcohol sensation but is not interested in quitting either. There is no evidence of underlying respiratory tract infection at the present time. Did have compromise of respiratory status associated with his allergic reaction but this seems to have quieted he feels as though his back to baseline -Supplemental oxygen as needed -Nebulizer therapy as needed -Encourage vigorous pulmonary toilet after surgery ALCOHOL ABUSE AND DEPENDENCE -Monitor closely for any evidence of alcohol withdrawal during the postoperative period MAINTENANCE ISSUES -DVT prophylaxis; SCUDs -GI prophylaxis; Protonix 40 mg by mouth daily -Jo catheter; not indicated -Nutrition; 2 g sodium diet, n.p.o. after midnight -Nicotinic dependence; nicotine patch 14 mg daily, nicotine inhaler when necessary CODE STATUS-FULL CODE ADMISSION STATUS-this patient will be admitted to observation status, expect no more than a one night hospital stay for evaluation and management of problems as outlined above. DISPOSITION-anticipate discharge to home tomorrow PRIMARY CARE PROVIDER-Dr. Jules
[2016-10-26] MEDS: [UNRECOGNIZED DRUG - OTHER] PO PRN ×2 (16:21→23:36)
[2016-10-27] MEDS: methylPREDNISolone Sodium Succinate 40 MG/1 ML SDV IVPUSH SCH ×2 (00:01→05:39)
[2016-10-27] MEDS: LORazepam 1 MG Tab PO SCH (01:55)
[2016-10-27] MEDS: Meropenem 1 GM in Sodium Chloride 0.9% 100 ML IV SCH (02:55)
[2016-10-27] MEDS: Lactated Ringers 1,000 ML IV SCH (02:55)
[2016-10-27] MEDS: chlordiazePOXIDE 25 MG Cap PO SCH (03:42)
[2016-10-27] MEDS: Albuterol/Ipratropium 3.0-0.5 MG/3 ML Neb Soln NEB SCH (07:20)
[2016-10-27 07:35] VITALS: BP 94/71
[2016-10-27] MEDS: Thiamine 100 MG Tab PO SCH (08:26)
[2016-10-27] MEDS: Metoprolol Tartrate 50 MG Tab PO SCH (08:26)
[2016-10-27] MEDS: Multivitamins with Iron/Calcium/Folic Acid/Minerals Tab PO SCH (08:27)
[2016-10-27] MEDS: Folic Acid 1 MG Tab PO SCH (08:27)
[2016-10-27] MEDS: Nicotine 21 MG/24 Hr Patch TRDERM SCH (08:27)
[2016-10-27] MEDS: Furosemide 40 MG/4 ML VIAL ONE (09:41)
--- NOTE | 2016-10-27 23:59 | DISCH ---
ADMISSION DIAGNOSES: 1. Perforation of umbilical hernia. 2. Hepatic cirrhosis with ascites, longstanding history of alcohol abuse. 3. Chronic obstructive pulmonary disease. DISCHARGE DIAGNOSES: 1. Perforation of umbilical hernia. 2. Hepatic cirrhosis with ascites, longstanding history of alcohol abuse. 3. Chronic obstructive pulmonary disease. HISTORY: Josiah Bray was admitted on 10/25/2016. He was given albumin and had an allergic reaction to it, so his operative procedure was rescheduled for 10/26/2016. He did not have any evidence of alcohol withdrawal. He was treated appropriately. He had his surgery on 10/26/2016. He had no operative complications. He was able to be discharged to home without any complications on 10/27/2016. PHYSICAL EXAMINATION: GENERAL: Josiah Bray is a 71-year-old male. Height is 5 feet 7 inches. Weight is 219 pounds. TPR is 97, 74, 16. Blood pressure is 94/71. HEENT: Negative. NECK: Supple. HEART: Regular rate and rhythm. LUNGS: Clear but decreased breath sounds bilaterally. ABDOMEN: Dressings dry and intact. Abdominal binder is on. EXTREMITIES: With trace peripheral edema. DISPOSITION: Discharge to home. CONDITION: Stable and improving. FOLLOWUP APPOINTMENT: With Nabor Castillo MD on Thursday10/29/2016 at 9:00 a.m. HOME MEDICATIONS: 1. Bactrim DS 1 b.i.d. for 10 days. 2. Oxycodone 5-10 mg every 4 hours p.r.n. pain, #50. 3. Metoprolol tartrate 100 mg twice daily. DIET: After discharge, usual diet as tolerated. Drink 8 to 10 glasses of water a day. ACTIVITY: As tolerated. No lifting greater than 10 pounds for 6 weeks. Driving after discharge, do not drive on pain medication. May shower. Notify provider if any fever, increased pain, swelling, redness, drainage, nausea, or vomiting. Wound incision care, keep site clean and dry. Do not change dressing. Wear abdominal binder for 2 weeks and then as tolerated. SPECIAL INSTRUCTION: Use incentive spirometer 10 times every hour while awake for 2 weeks.
--- NOTE | 2016-11-04 08:47 | OR ---
DATE OF PROCEDURE: 10/26/2016 PREOPERATIVE DIAGNOSIS: Tense ascites associated with dehiscence and evisceration of abdominal wall in the periumbilical area. POSTOPERATIVE DIAGNOSIS: Tense ascites associated with dehiscence and evisceration of abdominal wall in the periumbilical area. PROCEDURE: Limited laparotomy with: 1. Umbilectomy (50810). 2. Closure of abdominal wall complicated by dehiscence and evisceration at periumbilical area (17681). ANESTHESIA: General. INDICATION FOR PROCEDURE: A 71-year-old with ascites-related hepatic cirrhosis, presenting with ongoing leakage from his periumbilical area. This has now been going on for about 10 days, but for a variety of reasons, he has not gotten to the operating room until this time. The plan will be to proceed with closure of the defect and return of any viscera that might be out in the area of dehiscence at this time. CT scan earlier did show omentum and small bowel within the area of dehiscence. Potential risks including bleeding, infection, injury to underlying viscera, possible recurrence or leakage of the area of the closure were all reviewed along with possibility of cardiopulmonary, septic, or hemorrhagic complications leading to , and the patient wishes to proceed. DETAILS OF PROCEDURE: The patient was taken to the operating room. After general endotracheal anesthesia was induced, the abdomen was prepped and draped. Jo catheter was also placed. Initially, the thinned out periumbilical skin was excised, i.e. the umbilicus was essentially removed as this was thinned out skin, which would likely be associated with a high rate of poor wound healing. After this was excised, the underlying fascial defect in the periumbilical area was identified. Through this, there was some omentum, as well as loop of small bowel. The bowel was otherwise intact. This was freed up from some adhesions and returned, as was the omentum. At this point, roughly 400 mL of ascitic fluid was removed to loosen the amount of tension in the early postoperative period and the defect then initially closed with an interrupted layer of #1 Vicryl stitch. These sutures were all then placed, and once they were in position, were then tied. As one tied the last stitch, cultures had been obtained from the peritoneal fluid which was otherwise fairly clear, and then 500 mg of meropenem and 200 mg of Zyvox was injected into the peritoneal cavity to help sterilize the peritoneal fluid, given some obvious intrinsic contamination. Once this layer of sutures was tied, then an additional layer of running #1 Vicryl stitch was placed, reinforcing that initial staple line. The subcutaneous tissue was approximated with some 4-0 Vicryl stitch and the skin with carly. Dressing was applied. The patient was taken to the recovery room in satisfactory condition. Nabor Castillo MD /[id number]
== END 2016-10-27 11:50 | disposition home or self-care (01) ==
LOC: JP.SDS 05:50 → JP.MS 08:31
PROVIDERS: ADMIT Hospitalist; ATTEND Surgery
DX: K42.9 Umbilical hernia without obstruction or gangrene (principal); L27.0 Generalized skin eruption due to drugs and medicaments taken internally; R06.2 Wheezing; T45.8X5A Adverse effect of other primarily systemic and hematological agents, initial encounter; Y92.239 Unspecified place in hospital as the place of occurrence of the external cause; Z79.899 Other long term (current) drug therapy; I10 Essential (primary) hypertension; F17.210 Nicotine dependence, cigarettes, uncomplicated; K70.31 Alcoholic cirrhosis of liver with ascites; F10.20 Alcohol dependence, uncomplicated; J44.9 Chronic obstructive pulmonary disease, unspecified
CPT/HCPCS: 36415; 49250; 49900; 80053; 83735; 84100; 85025; 85027; 85610; 85730; 87070; 87075; 87077; 87205; 88302; 88304; 93010; 94640; 96361; 96365; 96366; 96367; 96375; 96376; 99217; 99219; A9270; G0378; J1100; J1200; J1940; J2020; J2185; J2250; J2405; J2704; J2920; J2930; J3010; J7030; J7042; J7120; J7620; P9047

== ENCOUNTER 2017-05-30 17:32 | Emergency (ER) | payer MEDICARE, SELFPAY ==
[2017-05-30 17:47] VITALS: BP 142/82
--- NOTE | 2017-05-30 18:47 | EDM.PDOC ---
ED HPI GENERAL MEDICAL PROBLEM - General Chief Complaint: ENT Problem Stated Complaint: TOOTHACHE Time Seen by Provider: 05/30/17 18:15 Source of Information: Reports: Patient History Limitations: Reports: No Limitations - History of Present Illness INITIAL COMMENTS - FREE TEXT/NARRATIVE: This gentleman is here for dental pain. He says it's one of the left upper teeth believe it's one of the bicuspids. He says it broke off about 10 years ago but it's been hurting for the past week or so. - Related Data Allergies Allergy/AdvReac Type Severity Reaction Status Date / Time albumin human Allergy Severe Anaphylactic Verified 11/01/16 14:02 [From Flexbumin 25 %] Shock Home Meds: Home Meds Metoprolol Tartrate 100 mg PO BID 10/20/16 [History] Sertraline [Zoloft] 1 tab PO DAILY 05/30/17 [History] Past Medical History HEENT History: Reports: Other (See Below) Other HEENT History: reading glasses Cardiovascular History: Reports: Hypertension Respiratory History: Reports: None Musculoskeletal History: Reports: Fracture - Past Surgical History Cardiovascular Surgical History: Reports: None Respiratory Surgical History: Reports: None Other GI Surgeries/Procedures: liver cirrosis Social & Family History - Tobacco Use Smoking Status *Q: Current Every Day Smoker Years of Tobacco use: 50 Packs/Tins Daily: 0.1 Used Tobacco, but Quit: No Second Hand Smoke Exposure: No - Caffeine Use Caffeine Use: Reports: Coffee Other Caffeine Use: 1-2 cups of coffee with cream - Alcohol Use Days Per Week of Alcohol Use: 7 Number of Drinks Per Day: 4 Total Drinks Per Week: 28 - Recreational Drug Use Recreational Drug Use: No ED ROS ENT - Review of Systems Review Of Systems: ROS reveals no pertinent complaints other than HPI. ED EXAM, ENT - Physical Exam Exam: See Below Exam Limited By: No Limitations General Appearance: Alert, No Apparent Distress Mouth/Throat: Other (Most teeth or missing and or eroded off even with the gumline. To the left maxilla there is a small sinus that is draining some bloody discharge a small amount. Palpation of the gum shows that there is probably a small abscess in that area which is spontaneously draining. I believe the tooth is one of the left upper premolars) Course - Vital Signs Last Recorded V/S: Last Vital Signs Temp 36.0 C 05/30/17 17:53 Pulse 83 05/30/17 17:53 Resp 18 05/30/17 17:53 BP 142/82 H 05/30/17 17:53 Pulse Ox 97 05/30/17 17:53 Departure - Departure Time of Disposition: 18:40 Disposition: Home, Self-Care 01 Condition: Fair Clinical Impression: Dental abscess - Discharge Information Referrals: Lucian Jules MD [Primary Care Provider] - Additional Instructions: Take the antibiotic penicillin VK 500 mg 4 times daily for 10 days. For pain you may take Percocet 5/325, #15 tablets, one or 2 every 4 hours as needed for pain. Probably the best thing would be to take one Percocet tablet and one regular strength Tylenol tablet together. If you have to use 2 Percocets at the same time then don't take any extra Tylenol. Percocet causes sedation and is dangerous especially when combined with alcohol. Go to the dental clinic at 8:15 on Thursday and they will try to see you without an appointment
== END 2017-05-30 19:04 | disposition home or self-care (01) ==
LOC: JP.ED 17:32
DX: K04.7 Periapical abscess without sinus (principal); F17.210 Nicotine dependence, cigarettes, uncomplicated; I10 Essential (primary) hypertension; Z79.899 Other long term (current) drug therapy; Z88.8 Allergy status to other drugs, medicaments and biological substances
CPT/HCPCS: 99283

== ENCOUNTER 2017-12-04 10:49 | Emergency (ER) | payer MEDICARE, OTHER ==
--- NOTE | 2017-12-04 11:31 | EDM.PDOC ---
ED HPI GENERAL MEDICAL PROBLEM - General Chief Complaint: General Stated Complaint: FROM [facility] Time Seen by Provider: 12/04/17 11:27 Source of Information: Reports: Patient, Old Records, Provider History Limitations: Reports: No Limitations - History of Present Illness INITIAL COMMENTS - FREE TEXT/NARRATIVE: 72 yo male sent to the ER by Dr. Jules for pericentesis. Has known alcoholic liver dz with ascites. Labs last week were improved over prior labs. These labs were reviewed and shared with Dr. Cai. Onset: Gradual Duration: Chronic, Getting Worse Location: Reports: Abdomen Quality: Reports: Pressure Severity: Severe Improves with: Reports: None Worsens with: Reports: Other (time) Context: Reports: Other (has known end stage liver dz) Associated Symptoms: Reports: No Other Symptoms Treatments PHOTOGRAPHER'S MODEL: Reports: Other (see below) (medical management) Abdominal Pain Score (Numeric/FACES): 4 - Related Data Allergies Allergy/AdvReac Type Severity Reaction Status Date / Time albumin human Allergy Severe Anaphylactic Verified 12/04/17 11:22 [From Flexbumin 25 %] Shock Home Meds: Home Meds Metoprolol Tartrate 100 mg PO BID 10/20/16 [History] Sertraline [Zoloft] 1 tab PO DAILY 05/30/17 [History] traZODone 100 mg PO BEDTIME 12/04/17 [History] Past Medical History HEENT History: Reports: Other (See Below) Other HEENT History: reading glasses Cardiovascular History: Reports: Hypertension Respiratory History: Reports: None Musculoskeletal History: Reports: Fracture - Past Surgical History Cardiovascular Surgical History: Reports: None Respiratory Surgical History: Reports: None Other GI Surgeries/Procedures: liver cirrosis Social & Family History - Tobacco Use Smoking Status *Q: Current Every Day Smoker Years of Tobacco use: 50 Packs/Tins Daily: 0.1 Used Tobacco, but Quit: No Second Hand Smoke Exposure: No - Caffeine Use Caffeine Use: Reports: Coffee Other Caffeine Use: 1-2 cups of coffee with cream - Alcohol Use Days Per Week of Alcohol Use: 7 Number of Drinks Per Day: 4 Total Drinks Per Week: 28 - Recreational Drug Use Recreational Drug Use: No ED ROS GENERAL - Review of Systems Review Of Systems: See Below Constitutional: Reports: No Symptoms HEENT: Reports: No Symptoms Respiratory: Reports: No Symptoms Cardiovascular: Reports: No Symptoms GI/Abdominal: Reports: Other (ascites) : Reports: No Symptoms Musculoskeletal: Reports: No Symptoms Skin: Reports: No Symptoms ED EXAM, GENERAL - Physical Exam Exam: See Below Exam Limited By: No Limitations General Appearance: Alert, WD/WN, No Apparent Distress Eye Exam: Bilateral Eye: Normal Inspection Ears: Normal External Exam, Normal Canal, Hearing Grossly Normal Ear Exam: Bilateral Ear: Auricle Normal, Canal Normal Nose: Normal Inspection, Normal Mucosa, No Blood Throat/Mouth: Normal Inspection, Normal Lips, Normal Oropharynx, No Airway Compromise Head: Atraumatic, Normocephalic Neck: Normal Inspection Respiratory/Chest: No Respiratory Distress, Lungs Clear, Normal Breath Sounds Cardiovascular: Regular Rate, Rhythm GI/Abdominal: Distended (massive ascites) Extremities: Pedal Edema (Trace both LE's with some erythema, no increase warmth.) Neurological: Alert, Oriented, CN II-XII Intact, Normal Cognition, No Motor/ Sensory Deficits Psychiatric: Normal Affect, Normal Mood Skin Exam: Warm, Dry, Intact, No Rash, Erythema (of legs lower half, no increased warmth.) Course - Vital Signs Text/Narrative:: Dr. Cai removed 5 liters of ascitic fluid with some relief of his SOB noted. Last Recorded V/S: Last Vital Signs Temp 36.1 C 12/04/17 11:33 Pulse 66 12/04/17 11:52 Resp 18 12/04/17 11:52 BP 118/67 12/04/17 11:52 Pulse Ox 98 12/04/17 11:52 - Orders/Labs/Meds Meds: Medications Discontinued Medications Generic Name Dose Route Start Last Admin Trade Name Stu PRN Reason Stop Dose Admin Bacitracin 1 dose 12/04/17 11:37 12/04/17 11:49 Bacitracin Oint 1 Gm TOP 12/04/17 11:38 1 dose ONETIME ONE Administration Departure - Departure Time of Disposition: 11:55 Disposition: Home, Self-Care 01 Condition: Fair Clinical Impression: Ascites due to alcoholic cirrhosis - Discharge Information Referrals: Lucian Jules MD [Primary Care Provider] - Forms: ED Department Discharge
[2017-12-04] MEDS ORDERED: Bacitracin Oint 1 GM U/D Packet TOP ONE (11:37)
[2017-12-04 11:53] VITALS: BP 118/67
--- NOTE | 2017-12-04 13:58 | OR ---
DATE OF PROCEDURE: 12/04/2017 PROCEDURE: Paracentesis. FINDINGS: 5 L of straw-colored fluid. PREOPERATIVE DIAGNOSIS: Alcoholic cirrhosis. POSTOPERATIVE DIAGNOSIS: Alcoholic cirrhosis. RISKS: Risks, benefits, alternatives, and limitations including, but not limited to infection, bleeding, and injury to abdominal structures were explained to the patient, and they wished to proceed. ANESTHESIA: Local. PROCEDURE IN DETAIL: The patient was placed in supine position. The 11-megahertz ultrasound probe was used by myself and was used to interrogate the abdomen. A large amount of fluid was noted. A single barbi was created in the skin after this was anesthetized with 1% lidocaine at the ultrasound localized area. The sheath was introduced as the needle was withdrawn. 5 L of straw-colored fluid was able to be aspirated without difficulty. This was then closed in a [id number] fashion. Dermabond and dressings were applied. The patient tolerated the procedure well. Jacques Cai MD /[id number]
== END 2017-12-04 12:16 | disposition home or self-care (01) ==
LOC: JP.ED 10:49
DX: K70.31 Alcoholic cirrhosis of liver with ascites (principal); F17.210 Nicotine dependence, cigarettes, uncomplicated; Z79.899 Other long term (current) drug therapy; Z88.8 Allergy status to other drugs, medicaments and biological substances
CPT/HCPCS: 99284

== ENCOUNTER 2017-12-23 15:02 | Observation (INO) | payer MEDICARE ==
[2017-12-23] MEDS ORDERED: Lactated Ringers 1,000 ML IV ONE ×2 (15:30→17:03)
--- NOTE | 2017-12-23 16:24 | EDM.PDOC ---
ED HPI GENERAL MEDICAL PROBLEM - General Chief Complaint: Respiratory Problem Stated Complaint: SHORTNESS OF BREATH/PROCEDURE THIS MORNING Time Seen by Provider: 12/23/17 16:19 Source of Information: Reports: Patient, Family, RN Notes Reviewed History Limitations: Reports: No Limitations - History of Present Illness INITIAL COMMENTS - FREE TEXT/NARRATIVE: 72-year-old gentleman presents to the emergency department for shortness of breath, is a known history of end-stage renal disease with liver cirrhosis and ascites, underwent paracentesis today with 5 L of fluid removed. States shortly after procedure started feeling short of breath reported emergency department for further evaluation was found to be hypotensive. Denies any nausea, vomiting , fevers, , chest pain, or GI symptomatology. - Related Data Allergies Allergy/AdvReac Type Severity Reaction Status Date / Time albumin human Allergy Severe Anaphylactic Verified 12/04/17 11:22 [From Flexbumin 25 %] Shock Home Meds: Home Meds Metoprolol Tartrate 100 mg PO BID 10/20/16 [History] Sertraline [Zoloft] 1 tab PO DAILY 05/30/17 [History] traZODone 100 mg PO BEDTIME 12/04/17 [History] Omeprazole Magnesium [Prilosec Otc] 40 mg PO DAILY 12/07/17 [History] Spironolactone [Aldactone] 50 mg PO BID 12/07/17 [History] traMADol [Ultram] 50 mg PO Q8H PRN 12/07/17 [History] Past Medical History HEENT History: Reports: Other (See Below) Other HEENT History: reading glasses Cardiovascular History: Reports: Hypertension Gastrointestinal History: Reports: Cirrhosis, Other (See Below) Other Gastrointestinal History: hx of paracentesis Musculoskeletal History: Reports: Fracture - Past Surgical History Cardiovascular Surgical History: Reports: None Respiratory Surgical History: Reports: None Other GI Surgeries/Procedures: liver cirrosis Social & Family History - Tobacco Use Smoking Status *Q: Heavy Tobacco Smoker Years of Tobacco use: 50 Packs/Tins Daily: 0.2 - Caffeine Use Caffeine Use: Reports: Soda Other Caffeine Use: 1-2 cups of coffee with cream - Recreational Drug Use Recreational Drug Use: No ED ROS GENERAL - Review of Systems Review Of Systems: See Below Constitutional: Reports: No Symptoms HEENT: Reports: No Symptoms Respiratory: Reports: Shortness of Breath Cardiovascular: Reports: Dyspnea on Exertion GI/Abdominal: Reports: No Symptoms : Reports: No Symptoms Musculoskeletal: Reports: No Symptoms Skin: Reports: No Symptoms Neurological: Reports: No Symptoms ED EXAM, GENERAL - Physical Exam Exam: See Below Exam Limited By: No Limitations General Appearance: Alert, WD/WN, No Apparent Distress Neck: Normal Inspection, Supple, Non-Tender, Full Range of Motion Respiratory/Chest: No Respiratory Distress, Lungs Clear, Normal Breath Sounds, No Accessory Muscle Use Cardiovascular: Regular Rate, Rhythm, No Murmur GI/Abdominal: Soft, Distended. No: Guarding, Rigid Course - Vital Signs Last Recorded V/S: Last Vital Signs Temp 97 F 12/23/17 15:28 Pulse 70 12/23/17 17:43 Resp 21 H 12/23/17 17:43 BP 77/48 L 12/23/17 17:43 Pulse Ox 99 12/23/17 17:43 - Orders/Labs/Meds Orders: Active Orders 24 hr Category Date Time Status Cardiac Monitoring [RC] .As Directed Care 12/23/17 16:21 Active EKG Documentation Completion [RC] ASDIRECTED Care 12/23/17 16:22 Active Chest 2V [CR] Stat Exams 12/23/17 16:21 Taken EKG 12 Lead [EK] Stat Ther 12/23/17 16:21 Ordered Labs: Laboratory Tests 12/23/17 12/23/17 Range/Units 16:31 16:31 WBC 6.0 (4.5-11.0) K/uL RBC 3.35 L (4.30-5.90) M/uL Hgb 9.9 L D (12.0-15.0) g/dL Hct 30.4 L (40.0-54.0) % MCV 91 (80-98) fL MCH 30 (27-31) pg MCHC 33 (32-36) % Plt Count 305 (150-400) K/uL Neut % (Auto) 68 H (36-66) % Lymph % (Auto) 19 L (24-44) % [place] % (Auto) 10 H (2-6) % Eos % (Auto) 3 (2-4) % Baso % (Auto) 1 (0-1) % Sodium 135 L (140-148) mmol/L Potassium 4.4 (3.6-5.2) mmol/L Chloride 102 (100-108) mmol/L Carbon Dioxide 26 (21-32) mmol/L Anion Gap 11.4 (5.0-14.0) mmol/L BUN 13 (7-18) mg/dL Creatinine 0.9 (0.8-1.3) mg/dL Est Cr Clr Drug Dosing 67.32 mL/min Estimated GFR (MDRD) > 60 (>60) Glucose 66 L (74-106) mg/dL Calcium 8.0 L (8.5-10.1) mg/dL Total Bilirubin 0.2 (0.2-1.0) mg/dL AST 19 (15-37) U/L ALT 15 (12-78) U/L Alkaline Phosphatase 58 (46-116) U/L Troponin I < 0.017 (0.000-0.056) ng/mL Total Protein 6.4 (6.4-8.2) g/dL Albumin 2.0 L (3.4-5.0) g/dL Globulin 4.4 H (2.3-3.5) g/dL Albumin/Globulin Ratio 0.5 L (1.2-2.2) Meds: Medications Discontinued Medications Generic Name Dose Route Start Last Admin Trade Name Freq PRN Reason Stop Dose Admin Lactated Ringer's 1,000 mls @ 999 mls/hr 12/23/17 17:03 12/23/17 17:04 Ringers, Lactated IV 12/23/17 18:03 999 mls/hr BOLUS ONE Administration Lactated Ringer's 1,000 mls @ 999 mls/hr 12/23/17 15:30 12/23/17 17:34 Ringers, Lactated IV 12/23/17 16:30 999 mls/hr BOLUS ONE Administration Departure - Departure Time of Disposition: 18:04 Disposition: Admitted As Inpatient 64 Condition: Fair Clinical Impression: Hypotension Qualifiers: Hypotension type: postprocedural hypotension Qualified Code(s): I95.81 - Postprocedural hypotension - Discharge Information Referrals: Lucian Jules MD [Primary Care Provider] - Forms: ED Department Discharge - My Orders Last 24 Hours: My Active Orders 12/23/17 16:21 Cardiac Monitoring [RC] .As Directed Chest 2V [CR] Stat EKG 12 Lead [EK] Stat 12/23/17 16:22 EKG Documentation Completion [RC] ASDIRECTED - Assessment/Plan Last 24 Hours: My Active Orders 12/23/17 16:21 Cardiac Monitoring [RC] .As Directed Chest 2V [CR] Stat EKG 12 Lead [EK] Stat 12/23/17 16:22 EKG Documentation Completion [RC] ASDIRECTED Plan: Assessment Acuity = acute Site and laterality = hypotension complicated patient with known history of liver cirrhosis status post paracentesis 5 L Etiology = probably secondary to recent procedure Manifestations = dyspnea now resolved Location of injury = Home Lab values = hemoglobin low at 9.9 consistent normochromic anemia, CMP unremarkable troponin negative EKG demonstrates a junctional rhythm does have ST depressions in leads V2 and V4 and V5 however this is not new Plan Called discussed case with hospitalist song lyricist he agreed to come and evaluate the patient emergency department for admission This note was dictated using [email or web address] voice recognition software please call with any questions on syntax or grammar.
--- NOTE | 2017-12-23 18:22 | PCM.HP ---
H&P History of Present Illness - General Date of Service: 12/23/17 Admit Problem/Dx: Admission Diagnosis/Problem Admission Diagnosis/Problem Hypotension Source of Information: Patient, Provider History Limitations: Reports: No Limitations - History of Present Illness Initial Comments - Free Text/Narative: Diego presented to the ER from the clinic with hypotension after a paracentesis. He reports that his shortness of breath has improved following the paracentesis and is nearly back to baseline. He does not have any abdominal pain. While he is sitting down he does not have any dizziness or lightheadedness but has mild dizziness when he stands up. No complaints of abdominal pain. No chest pain. He has not had recent fevers. He feels well and would like to go home but lives alone and is a little concerned about the hypotension. He has had 2 previous paracentesis procedures and tolerated both of them well. He did take his metoprolol this morning. Workup in the emergency room has revealed fairly unremarkable laboratory studies. Chest x-ray was clear. Blood pressure is persistently hypotensive with systolic pressures in the 70s despite 2 L of fluid. He will be admitted for observation to ensure his blood pressure normalizes. - Related Data Allergies/Adverse Reactions: Allergies Allergy/AdvReac Type Severity Reaction Status Date / Time albumin human Allergy Severe Anaphylactic Verified 12/04/17 11:22 [From Flexbumin 25 %] Shock Home Medications: Home Meds Metoprolol Tartrate 100 mg PO BID 10/20/16 [History] Sertraline [Zoloft] 1 tab PO DAILY 05/30/17 [History] traZODone 100 mg PO BEDTIME 12/04/17 [History] Omeprazole Magnesium [Prilosec Otc] 40 mg PO DAILY 12/07/17 [History] Spironolactone [Aldactone] 50 mg PO BID 12/07/17 [History] traMADol [Ultram] 50 mg PO Q8H PRN 12/07/17 [History] Past Medical History HEENT History: Reports: Other (See Below) Other HEENT History: reading glasses Cardiovascular History: Reports: Hypertension Respiratory History: Reports: None Gastrointestinal History: Reports: Cirrhosis, Other (See Below) Other Gastrointestinal History: hx of paracentesis Musculoskeletal History: Reports: Fracture - Past Surgical History Cardiovascular Surgical History: Reports: None Respiratory Surgical History: Reports: None Other GI Surgeries/Procedures: liver cirrosis Social & Family History - Family History Respiratory: Reports: COPD - Tobacco Use Smoking Status *Q: Heavy Tobacco Smoker Years of Tobacco use: 50 Packs/Tins Daily: 0.2 - Caffeine Use Caffeine Use: Reports: Soda Other Caffeine Use: 1-2 cups of coffee with cream - Alcohol Use Alcohol Use History: Yes - Recreational Drug Use Recreational Drug Use: No H&P Review of Systems - Review of Systems: Review Of Systems: See Below Free Text/Narrative: A complete 12 point review of systems was obtained. Pertinent positives and negatives are noted in the history of present illness. All other systems were reviewed and were negative except as noted. Exam - Exam Exam: See Below - Vital Signs Vital Signs: Last Vital Signs Temp 36.1 C 12/23/17 15:28 Pulse 70 12/23/17 17:43 Resp 21 H 12/23/17 17:43 BP 77/48 L 12/23/17 17:43 Pulse Ox 99 12/23/17 17:43 Weight: 76.34 kg - Exam Quality Assessment: No: Supplemental Oxygen General: Alert, Oriented, Cooperative. No: Mild Distress HEENT: Mucosa Moist & [place]. No: Scleral Icterus Neck: Supple. No: Lymphadenopathy Lungs: Clear to Auscultation, Normal Respiratory Effort Cardiovascular: Regular Rate, Regular Rhythm. No: Systolic Murmur GI/Abdominal Exam: Normal Bowel Sounds, Soft, Non-Tender, Distended Back Exam: Normal Inspection, Full Range of Motion Extremities: Pedal Edema (mild bilateral ). No: Increased Warmth Skin: Warm, Dry, Other (chronic venous stasis changes bilaterally ) Neuro Extensive - Mental Status: Alert, Oriented x3, Nl Response to Commands Neuro Extensive - Motor, Sensory, Reflexes: CN II-XII Intact. No: Dysarthria, Abnormal Motor Psychiatric: Alert, Normal Affect - Patient Data Lab Results Last 24 hrs: Laboratory Results - last 24 hr 12/23/17 12/23/17 Range/Units 16:31 16:31 WBC 6.0 (4.5-11.0) K/uL RBC 3.35 L (4.30-5.90) M/uL Hgb 9.9 L D (12.0-15.0) g/dL Hct 30.4 L (40.0-54.0) % MCV 91 (80-98) fL MCH 30 (27-31) pg MCHC 33 (32-36) % Plt Count 305 (150-400) K/uL Neut % (Auto) 68 H (36-66) % Lymph % (Auto) 19 L (24-44) % [place] % (Auto) 10 H (2-6) % Eos % (Auto) 3 (2-4) % Baso % (Auto) 1 (0-1) % Sodium 135 L (140-148) mmol/L Potassium 4.4 (3.6-5.2) mmol/L Chloride 102 (100-108) mmol/L Carbon Dioxide 26 (21-32) mmol/L Anion Gap 11.4 (5.0-14.0) mmol/L BUN 13 (7-18) mg/dL Creatinine 0.9 (0.8-1.3) mg/dL Est Cr Clr Drug Dosing 67.32 mL/min Estimated GFR (MDRD) > 60 (>60) Glucose 66 L (74-106) mg/dL Calcium 8.0 L (8.5-10.1) mg/dL Total Bilirubin 0.2 (0.2-1.0) mg/dL AST 19 (15-37) U/L ALT 15 (12-78) U/L Alkaline Phosphatase 58 (46-116) U/L Troponin I < 0.017 (0.000-0.056) ng/mL Total Protein 6.4 (6.4-8.2) g/dL Albumin 2.0 L (3.4-5.0) g/dL Globulin 4.4 H (2.3-3.5) g/dL Albumin/Globulin Ratio 0.5 L (1.2-2.2) Result Diagrams: 12/23/17 16:31 12/23/17 16:31 Imaging Impressions Last 24 hrs: CXR - images personally reviewed - lungs are clear, no mass infiltrate or effusion. Heart size is normal. *Q Meaningful Use (ADM) - VTE Risk Assess *Q Each Risk Factor Represents 1 Point: Swollen Legs, Current, Obesity ( BMI > 25 kg/m2) Total Score 1 Point Risk Factors: 2 Each Risk Factor Represents 2 Points: Age 60 - 74 Years Total Score 2 Point Risk Factors: 2 Each Risk Factor Represents 3 Points: None Total Score 3 Point Risk Factors: 0 Each Risk Factor Represents 5 Points: None Total Score 5 Point Risk Factors: 0 Venous Thromboembolism Risk Factor Score *Q: 4 - Problem List (1) Hypotension SNOMED Code(s): 97263242 ICD Code: I95.9 - HYPOTENSION, UNSPECIFIED Status: Acute Current Visit: Yes Qualifiers: Hypotension type: postprocedural hypotension Qualified Code(s): I95.81 - Postprocedural hypotension (2) Dyspnea SNOMED Code(s): 261801237 ICD Code: R06.00 - DYSPNEA, UNSPECIFIED Status: Acute Current Visit: Yes Qualifiers: Dyspnea type: unspecified Qualified Code(s): R06.00 - Dyspnea, unspecified (3) Ascites due to alcoholic cirrhosis SNOMED Code(s): 0310692546305754 ICD Code: K70.31 - ALCOHOLIC CIRRHOSIS OF LIVER WITH ASCITES Status: Chronic Current Visit: No Problem List Initiated/Reviewed/Updated: Yes Orders Last 24hrs: Active Orders 24 hr Category Date Time Status Patient Status Manage Transfer [TRANSFER] Routine ADT 12/23/17 18:15 Ordered Cardiac Monitoring [RC] .As Directed Care 12/23/17 16:21 Active EKG Documentation Completion [RC] ASDIRECTED Care 12/23/17 16:22 Active Chest 2V [CR] Stat Exams 12/23/17 16:21 Taken Resuscitation Status Routine Resus Stat 12/23/17 18:16 Ordered EKG 12 Lead [EK] Stat Ther 12/23/17 16:21 Ordered Assessment/Plan Comment:: ASSESSMENT AND PLAN - Postprocedural hypotension - blood pressure remains low following paracentesis that removed 5 L of fluid. He tolerated to previous procedures with no hypotension. He is allergic to albumin so we cannot use the colloid to augment his blood pressure. He is essentially asymptomatic at this time but given the degree of hypotension would benefit from close monitoring overnight. He has already received 2 L of fluid and I believe additional fluid will just third space and be unlikely to be helpful. -Hold antihypertensives and diuretics -Close monitoring of blood pressure -Consider small fluid challenges if symptomatic Dyspnea - likely related to his abdominal distention of the setting of a ascites. Much better after the paracentesis. End-stage liver disease secondary to alcoholic cirrhosis - complicated by ascites requiring recurrent paracentesis procedures. -Hold diuretics as above Maintenance issues - - DVT prophylaxis - mechanical - GI prophylaxis - not indicated - Nutrition - regular diet - Jo catheter - not indicated CODE STATUS - full code Admission justification - patient will be referred observation status for close monitoring overnight Disposition - I anticipate discharged home tomorrow morning Primary care physician - Dr Jorge A Mcdaniel M.D.
[2017-12-23] MEDS ORDERED: Acetaminophen 325 MG Tab PO PRN (19:15)
[2017-12-23] MEDS ORDERED: Ondansetron 4 MG Tab.DIS PO PRN (19:15)
[2017-12-24] MEDS ORDERED: Melatonin 3 MG Tab PO PRN (02:45)
--- NOTE | 2017-12-24 09:17 | CR ---
Chest 2V INDICATION: Chest Pain COMPARISON: None FINDINGS: Two views. Heart size normal. Aorta tortuous and calcific. Lungs are clear. No infiltrat e or pleural effusion. No signs of pulmonary edema.
--- NOTE | 2017-12-24 10:19 | PCM.DCSUM1 ---
Discharge Summary - Hospital Course Brief History: 72-year-old male with end-stage liver disease requiring recurrent paracentesis was admitted for observation with persistent hypotension after the paracentesis. - Discharge Data Discharge Date: 12/24/17 Discharge Disposition: Home, Self-Care 01 Condition: Good - Discharge Diagnosis/Problem(s) (1) Hypotension SNOMED Code(s): 47547255 ICD Code: I95.9 - HYPOTENSION, UNSPECIFIED Status: Acute Qualifiers: Hypotension type: postprocedural hypotension Qualified Code(s): I95.81 - Postprocedural hypotension (2) Dyspnea SNOMED Code(s): 302084912 ICD Code: R06.00 - DYSPNEA, UNSPECIFIED Status: Acute Qualifiers: Dyspnea type: unspecified Qualified Code(s): R06.00 - Dyspnea, unspecified (3) Ascites due to alcoholic cirrhosis SNOMED Code(s): 7546870228926984 ICD Code: K70.31 - ALCOHOLIC CIRRHOSIS OF LIVER WITH ASCITES Status: Chronic - Patient Summary/Data Hospital Course: Diego presented to the emergency room with persistent hypotension following a paracentesis that removed approximately 5 L of fluid. Systolic pressures following the procedure were in the 60s and 70s. He had minimal symptoms including mild dizziness when standing. Workup in the emergency room was relatively unremarkable other than the hypotension. He received 2 L of IV fluids in the emergency room with systolic pressures only saeed to the upper 70s. He was admitted to the hospital for overnight observation to ensure that his blood pressure improved. We were not able to give him albumin because of his allergy. I did decrease his metoprolol from 100 down to 50 mg. Overnight his blood pressure slowly normalized. The morning after admission his systolic pressures in the 100s. He has very mild dizziness that lasts only a short while after he stands. He feels nearly back to his usual self and is comfortable going home at this time. He will be returned to his usual follow-up. I did decrease his metoprolol down to 50 mg twice daily and encouraged him to continue this after the hospital stay. - Patient Instructions Diet: Low Sodium Activity: As Tolerated Showering/Bathing: December Shower Notify Provider of: Fever, Increased Pain, Nausea and/or Vomiting Other/Special Instructions: 1. You were in the hospital for observation after you had persistent hypotension following her paracentesis yesterday. Your blood pressures have improved without any specific intervention after the IV fluid provided in the emergency room. I do recommend decreasing her metoprolol to 50 mg twice daily. This is one half of your previous dose. 2. Follow-up with primary care as needed. 3. Please seek medical attention if you develop fever greater than 101, you have severe shortness of breath or severe abdominal pain. - Discharge Plan Prescriptions/Med Rec: Metoprolol Tartrate 50 mg PO BID #30 tablet Home Medications: Home Meds Sertraline [Zoloft] 1 tab PO DAILY 05/30/17 [History] traZODone 100 mg PO BEDTIME 12/04/17 [History] Omeprazole Magnesium [Prilosec Otc] 40 mg PO DAILY 12/07/17 [History] Spironolactone [Aldactone] 50 mg PO BID 12/07/17 [History] traMADol [Ultram] 50 mg PO Q8H PRN 12/07/17 [History] Metoprolol Tartrate 50 mg PO BID #30 tablet 12/24/17 [Rx] Patient Handouts: Hypotension, [id number] Referrals: Lucian Jules MD [Primary Care Provider] - (f/u as needed after the hospital stay ) - Discharge Summary/Plan Comment DC Time >30 min.: No (25) - Patient Data Vitals - Most Recent: Last Vital Signs Temp 36.3 C 12/24/17 06:45 Pulse 70 12/24/17 06:45 Resp 20 12/24/17 06:45 BP 88/52 L 12/24/17 06:45 Pulse Ox 100 12/24/17 06:45 Weight - Most Recent: 84.005 kg I&O - Last 24 hours: Intake & Output 12/23/17 12/24/17 12/24/17 22:59 06:59 14:59 Intake Total 240 120 200 Balance 240 120 200 Lab Results - Last 24 hrs: Laboratory Results - last 24 hr 12/23/17 12/23/17 12/24/17 Range/Units 16:31 16:31 05:11 WBC 6.0 5.5 (4.5-11.0) K/uL RBC 3.35 L 3.42 L (4.30-5.90) M/uL Hgb 9.9 L D 10.1 L (12.0-15.0) g/dL Hct 30.4 L 30.8 L (40.0-54.0) % MCV 91 90 (80-98) fL MCH 30 30 (27-31) pg MCHC 33 33 (32-36) % Plt Count 305 307 (150-400) K/uL Neut % (Auto) 68 H (36-66) % Lymph % (Auto) 19 L (24-44) % [place] % (Auto) 10 H (2-6) % Eos % (Auto) 3 (2-4) % Baso % (Auto) 1 (0-1) % Sodium 135 L (140-148) mmol/L Potassium 4.4 (3.6-5.2) mmol/L Chloride 102 (100-108) mmol/L Carbon Dioxide 26 (21-32) mmol/L Anion Gap 11.4 (5.0-14.0) mmol/L BUN 13 (7-18) mg/dL Creatinine 0.9 (0.8-1.3) mg/dL Est Cr Clr Drug Dosing 67.32 mL/min Estimated GFR (MDRD) > 60 (>60) Glucose 66 L (74-106) mg/dL Calcium 8.0 L (8.5-10.1) mg/dL Total Bilirubin 0.2 (0.2-1.0) mg/dL AST 19 (15-37) U/L ALT 15 (12-78) U/L Alkaline Phosphatase 58 (46-116) U/L Troponin I < 0.017 (0.000-0.056) ng/mL Total Protein 6.4 (6.4-8.2) g/dL Albumin 2.0 L (3.4-5.0) g/dL Globulin 4.4 H (2.3-3.5) g/dL Albumin/Globulin Ratio 0.5 L (1.2-2.2) / Range/Units 05:11 WBC (4.5-11.0) K/uL RBC (4.30-5.90) M/uL Hgb (12.0-15.0) g/dL Hct (40.0-54.0) % MCV (80-98) fL MCH (27-31) pg MCHC (32-36) % Plt Count (150-400) K/uL Neut % (Auto) (36-66) % Lymph % (Auto) (24-44) % [place] % (Auto) (2-6) % Eos % (Auto) (2-4) % Baso % (Auto) (0-1) % Sodium 134 L (140-148) mmol/L Potassium 4.5 (3.6-5.2) mmol/L Chloride 101 (100-108) mmol/L Carbon Dioxide 26 (21-32) mmol/L Anion Gap 11.5 (5.0-14.0) mmol/L BUN 12 (7-18) mg/dL Creatinine 0.8 (0.8-1.3) mg/dL Est Cr Clr Drug Dosing 77.06 mL/min Estimated GFR (MDRD) > 60 (>60) Glucose 79 (74-106) mg/dL Calcium 8.0 L (8.5-10.1) mg/dL Total Bilirubin (0.2-1.0) mg/dL AST (15-37) U/L ALT (12-78) U/L Alkaline Phosphatase (46-116) U/L Troponin I (0.000-0.056) ng/mL Total Protein (6.4-8.2) g/dL Albumin (3.4-5.0) g/dL Globulin (2.3-3.5) g/dL Albumin/Globulin Ratio (1.2-2.2) Med Orders - Current: Current Medications Acetaminophen (Tylenol) 650 mg PO Q4H PRN PRN Reason: Pain (Mild 1-3)/fever Melatonin (Melatonin) 9 mg PO BEDTIME PRN PRN Reason: Insomnia Last Admin: 12/24/17 03:14 Dose: 9 mg Ondansetron HCl (Zofran Odt) 4 mg PO Q6H PRN PRN Reason: Nausea able to take PO Discontinued Medications Lactated Ringer's (Ringers, Lactated) 1,000 mls @ 999 mls/hr IV BOLUS ONE Stop: 12/23/17 18:03 Last Admin: 12/23/17 17:04 Dose: 999 mls/hr Lactated Ringer's (Ringers, Lactated) 1,000 mls @ 999 mls/hr IV BOLUS ONE Stop: 12/23/17 16:30 Last Admin: 12/23/17 17:34 Dose: 999 mls/hr - Exam Quality Assessment: Denies: Supplemental Oxygen General: Reports: Alert, Oriented, Cooperative, No Acute Distress Neck: Reports: Supple Lungs: Reports: Normal Respiratory Effort GI/Abdominal Exam: Distended Psy/Mental Status: Reports: Alert, Normal Affect *Q Meaningful Use (DIS) - VTE *Q VTE Pharmacological Contraindications *Q: Risk of Bleeding
[2017-12-24 10:52] VITALS: BP 79/55
== END 2017-12-24 12:30 | disposition home or self-care (01) ==
LOC: JP.ED 15:02 → JP.MS 18:15
PROVIDERS: ADMIT Internal Medicine; ATTEND Internal Medicine
DX: I95.81 Postprocedural hypotension (principal); K72.90 Hepatic failure, unspecified without coma; K70.31 Alcoholic cirrhosis of liver with ascites; I10 Essential (primary) hypertension; F17.290 Nicotine dependence, other tobacco product, uncomplicated; Z79.899 Other long term (current) drug therapy; Z88.8 Allergy status to other drugs, medicaments and biological substances
CPT/HCPCS: 36415; 49083; 71046; 80048; 80053; 84484; 85025; 85027; 93005; 93010; 96360; 96361; 99284; 99285; A9270; G0378; J7120